=== PATIENT | female | born 1955 ===

== ENCOUNTER 2021-01-04 13:46 | Outpatient (CLI) | payer OTHER | END 2021-01-04 13:50 | disposition home or self-care (01) | LOC: PPH VACUNA 13:46 | PROVIDERS: ATTEND Emergency Medicine Pediatric Emergency Medicine | DX: Z23 Encounter for immunization (principal) ==

== ENCOUNTER 2021-07-18 08:00 | Outpatient (CLI) | payer OTHER | END 2021-07-18 08:30 | disposition home or self-care (01) | LOC: PPH VACUNA 08:00 | PROVIDERS: ATTEND Emergency Medicine Pediatric Emergency Medicine | DX: Z23 Encounter for immunization (principal); Z71.85 Encounter for immunization safety counseling ==